=== PATIENT | female | born 1975 | race Two or more races ===

== ENCOUNTER 2016-10-25 18:55 | Emergency (ER) | payer SELFPAY ==
[~2016-10-25 18:55] MED LIST: CYCLOBENZAPRINE10 M1 PO; CYMBALTA30 M1 PO; FLEXERIL10 MG PO; METFORMIN HCL500 MG PO; NORCO 5-325 TA1 EACH PO; PERCOCET 5/3251 TAB PO; PROPRANOLOL HCL20 M2 PO
[2016-10-25] MEDS ORDERED: ZOLOFT50 M1 PO (19:24)
[2016-10-25] MEDS ORDERED: NORCO 5-325 TA1 EACH PO (19:43)
[2016-10-25] MEDS ORDERED: NAPROSYN500 M1 PO (19:43)
== END 2016-10-25 20:18 ==
LOC: EDMED 18:55
DX: G89.29 Other chronic pain (principal); M54.5 Low back pain
CPT/HCPCS: J1885